=== PATIENT | female | born 1950 | race Caucasian/White ===

== ENCOUNTER 2018-12-30 18:18 | Inpatient (IN) | payer MEDICARE ==
[~2018-12-30] VITALS: Ht 167.6 cm; Wt 105.7 kg
[2018-12-30] MEDS ORDERED: MORPHINE SULFATE 2 MG/ML VIAL. IV/SQ PRN (18:30)
[2018-12-30] MEDS ORDERED: IV NORMAL SALINE 1000ML BAG 1,000 ML IV SCH (18:45)
[2018-12-30] MEDS ORDERED: ONDANSETRON PF 4 MG/2 ML VIAL. IV ONE (18:45)
[2018-12-30 18:51] LABS: BASO # 0.1 x10^3/uL (0.0-0.2); BASO % 1 % (0-3); EOS # 0.2 x10^3/uL (0.0-0.7); EOS % 2 % (0-3); HEMATOCRIT 40.9 % (36.0-47.0); HEMOGLOBIN 13.6 g/dL (12.0-15.5); LYMPH # 4.3 x10^3/uL (1.0-4.8); LYMPH % 38 % (24-48); MEAN CORPUSCULAR HEMOGLOBIN 31 pg (25-35); MEAN CORPUSCULAR HGB CONC 33 g/dL (31-37); MEAN CORPUSCULAR VOLUME 94 fL (79-100); MONO # 0.8 x10^3/uL (0.0-1.1); MONO % 7 % (0-9); NEUT % 53 % (31-73); PLATELET COUNT 244 x10^3/uL (140-400); RED BLOOD COUNT 4.37 x10^6/uL (3.50-5.40); RED CELL DISTRIBUTION WIDTH 13.2 % (11.5-14.5); WHITE BLOOD COUNT 11.4 x10^3/uL (4.0-11.0)
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
[2018-12-30 19:03] LABS: PROTHROMBIN TIME PATIENT 12.5 SEC (11.7-14.0)
[2018-12-30 19:07] LABS: CALCIUM 9.4 mg/dL (8.5-10.1); CREATININE 0.8 mg/dL (0.6-1.0); GFR 70.9; POTASSIUM 4.2 mmol/L (3.5-5.1)
[2018-12-30 19:14] LABS: ALBUMIN 3.7 g/dL (3.4-5.0); ALBUMIN/GLOBULIN RATIO 0.9 (1.0-1.7); TOTAL BILIRUBIN 0.4 mg/dL (0.2-1.0); TOTAL PROTEIN 7.6 g/dL (6.4-8.2)
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
[2018-12-30] MEDS ORDERED: KETOROLAC 30 MG/ML VIAL. IV ONE (19:45)
[2018-12-30] MEDS ORDERED: ONDANSETRON PF 4 MG/2 ML VIAL. IV PRN (20:15)
[2018-12-30] MEDS ORDERED: ACETAMINOPHEN 325 MG TABLET. PO PRN (20:15)
[2018-12-30] MEDS ORDERED: DEXTROSE 50% 25 GM / 50ML DISP.SYRIN. IV PRN (21:15)
[2018-12-30] MEDS: MORPHINE SULFATE 2 MG/ML VIAL. IV PRN (21:58)
[2018-12-30 22:28] LABS: BILIRUBIN,URINE NEGATIVE (NEG); CLARITY,URINE CLOUDY; COLOR,URINE YELLOW; NITRITE,URINE NEGATIVE (NEG); PROTEIN,URINE NEGATIVE (NEG-TRACE); UROBILINOGEN,URINE 0.2 mg/dL (0.2 mg/dL)
[2018-12-30 22:38] LABS: BACTERIA,URINE MOD /HPF (0-FEW); SQUAMOUS EPITHELIAL CELL,UR MOD /LPF; WBC,URINE >40 /HPF (0-4)
[2018-12-30] MEDS: LIDOCAINE (700MG/PATCH) PATCH. TD SCH (22:55)
[2018-12-30 23:50] VITALS: BP 120/63
[2018-12-31] MEDS: IPRATRPIUM/ALBUTEROL 0.5/2.5MG 3 ML NEBU. NEB SCH ×5 (00:57→19:48)
[2018-12-31 03:03] VITALS: BP 99/43
[2018-12-31] MEDS: MORPHINE SULFATE 2 MG/ML VIAL. IV PRN ×3 (03:56→17:25)
[2018-12-31] MEDS ORDERED: FLUT1DIS3 IH (05:10)
[2018-12-31] MEDS ORDERED: METF500T16 PO (05:16)
[2018-12-31] MEDS ORDERED: FAMO-63 PO (05:16)
[2018-12-31] MEDS ORDERED: LEVO112T4 PO (05:16)
[2018-12-31 07:00] VITALS: BP 121/59
[2018-12-31] MEDS: INSULIN LISPRO 300 UNITS/3 ML VIAL. SQ SCH ×4 (07:30→20:33)
[2018-12-31 08:33] LABS: BASO % 0 % (0-3); EOS # 0.1 x10^3/uL (0.0-0.7); EOS % 1 % (0-3); HEMATOCRIT 36.2 % (36.0-47.0); HEMOGLOBIN 12.1 g/dL (12.0-15.5); LYMPH # 1.6 x10^3/uL (1.0-4.8); LYMPH % 24 % (24-48); MEAN CORPUSCULAR HEMOGLOBIN 32 pg (25-35); MEAN CORPUSCULAR HGB CONC 33 g/dL (31-37); MEAN CORPUSCULAR VOLUME 95 fL (79-100); MONO # 0.9 x10^3/uL (0.0-1.1); MONO % 12 % (0-9); NEUT # 4.4 x10^3/uL (1.8-7.7); NEUT % 63 % (31-73); PLATELET COUNT 188 x10^3/uL (140-400); RED BLOOD COUNT 3.81 x10^6/uL (3.50-5.40); RED CELL DISTRIBUTION WIDTH 13.4 % (11.5-14.5); WHITE BLOOD COUNT 6.9 x10^3/uL (4.0-11.0)
[2018-12-31] MEDS ORDERED: ACETAMINOPHEN 325 MG TABLET. PO PRN (09:00)
[2018-12-31] MEDS ORDERED: NON FORMULARY ITEM (Fluticasone/Salmeterol (Advair 250-50 Diskus) 1 PUFF) IH SCH (09:00)
[2018-12-31] MEDS ORDERED: ACETAMINOPHEN 325 MG TABLET. PO SCH (09:00)
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
[2018-12-31 09:18] LABS: ALBUMIN 2.9 g/dL (3.4-5.0); ALBUMIN/GLOBULIN RATIO 0.9 (1.0-1.7); CALCIUM 8.6 mg/dL (8.5-10.1); CREATININE 0.7 mg/dL (0.6-1.0); GFR 82.7; POTASSIUM 4.5 mmol/L (3.5-5.1); TOTAL BILIRUBIN 0.4 mg/dL (0.2-1.0); TOTAL PROTEIN 6.2 g/dL (6.4-8.2)
[2018-12-31] MEDS: LIDOCAINE (700MG/PATCH) PATCH. TD SCH (10:33)
[2018-12-31] MEDS: HYDROcodone/APAP 5/325MG 1 TAB TABLET PO PRN ×3 (10:33→20:30)
[2018-12-31] MEDS: KETOROLAC 15 MG/ML VIAL. IVP PRN ×2 (10:33→17:22)
[2018-12-31] MEDS: LEVOTHYROXINE 112 MCG TABLET PO SCH (10:33)
[2018-12-31 11:00] VITALS: BP 103/61
[2018-12-31] MEDS: BUDESONIDE 0.5 MG/2 ML NEBU. NEB SCH ×2 (11:29→19:47)
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
[2018-12-31] MEDS: FAMOTIDINE 20 MG TABLET. PO SCH ×2 (14:23→20:26)
[2018-12-31] MEDS: IBUPROFEN 400 MG TABLET. PO SCH ×2 (14:23→17:21)
[2018-12-31 15:00] VITALS: BP 115/59
[2018-12-31 19:38] VITALS: BP 107/50
[2018-12-31] MEDS: ALBUTEROL SULFATE 2.5 MG/3 ML NEBU. NEB SCH (19:47)
[2018-12-31] MEDS: PATCH REMOVAL. MC SCH ×2 (20:27)
[2018-12-31] MEDS ORDERED: FAMOTIDINE 20 MG TABLET. PO SCH (21:00)
[2018-12-31] MEDS: tiZANidine 4 MG TABLET. PO PRN (22:42)
[2018-12-31 23:36] VITALS: BP 108/42
[2019-01-01 03:42] VITALS: BP 107/61
[2019-01-01] MEDS: HYDROcodone/APAP 5/325MG 1 TAB TABLET PO PRN ×4 (06:06→21:21)
[2019-01-01] MEDS: LEVOTHYROXINE 112 MCG TABLET PO SCH (06:06)
[2019-01-01] MEDS: KETOROLAC 15 MG/ML VIAL. IVP PRN (06:11)
[2019-01-01 07:00] VITALS: BP 123/71
[2019-01-01] MEDS: INSULIN LISPRO 300 UNITS/3 ML VIAL. SQ SCH (07:30)
[2019-01-01] MEDS: IPRATRPIUM/ALBUTEROL 0.5/2.5MG 3 ML NEBU. NEB SCH ×4 (08:12→20:20)
[2019-01-01] MEDS: BUDESONIDE 0.5 MG/2 ML NEBU. NEB SCH ×2 (08:12→20:20)
[2019-01-01] MEDS: ALBUTEROL SULFATE 2.5 MG/3 ML NEBU. NEB SCH ×3 (08:14→20:00)
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
[2019-01-01] MEDS: FAMOTIDINE 20 MG TABLET. PO SCH ×2 (10:20→21:18)
[2019-01-01] MEDS: IBUPROFEN 400 MG TABLET. PO SCH ×3 (10:20→19:32)
[2019-01-01] MEDS: LIDOCAINE (700MG/PATCH) PATCH. TD SCH (10:21)
[2019-01-01 11:00] VITALS: BP 152/78
[2019-01-01] MEDS: tiZANidine 4 MG TABLET. PO PRN (14:18)
[2019-01-01 15:00] VITALS: BP 119/68
[2019-01-01 20:34] VITALS: BP 127/60
[2019-01-01] MEDS: PATCH REMOVAL. MC SCH (21:00)
[2019-01-01 22:49] VITALS: BP 151/77
[2019-01-02 03:00] VITALS: BP 125/74
[2019-01-02] MEDS: tiZANidine 4 MG TABLET. PO PRN (03:57)
[2019-01-02] MEDS: HYDROcodone/APAP 5/325MG 1 TAB TABLET PO PRN ×4 (03:57→17:23)
[2019-01-02] MEDS: LEVOTHYROXINE 112 MCG TABLET PO SCH (06:00)
--- NOTE | 2019-01-02 06:12 | EKG ---
[facility] [address] [place] [address] Test Date: 2018-12-30 Test Time: 18:31:12 Pat Name: BERHANE HERNANDEZ Department: Room: Gender: F [employer]: : [id number] Requested By: EARNESTINE MCCLELLAN Order Number: [id number] Reading MD: Measurements Intervals [place] Rate: 93 P: 163 NH: 164 QRS: 32 QRSD: 84 T: -2 QT: 370 QTc: 462 Interpretive Statements SINUS RHYTHM NORMAL ECG No previous ECG available for comparison
[2019-01-02 07:00] VITALS: BP 107/61
[2019-01-02] MEDS: ALBUTEROL SULFATE 2.5 MG/3 ML NEBU. NEB SCH ×3 (07:45→16:04)
[2019-01-02] MEDS: BUDESONIDE 0.5 MG/2 ML NEBU. NEB SCH (07:45)
[2019-01-02] MEDS ORDERED: HYDR-2761 PO (08:04)
[2019-01-02] MEDS ORDERED: NAPR-514 PO (08:04)
[2019-01-02] MEDS ORDERED: TIZA4TAB2 PO (08:04)
[2019-01-02] MEDS ORDERED: ALBU2.5V8 IH (08:05)
[2019-01-02] MEDS ORDERED: LIDO700A21 TP (08:06)
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
[2019-01-02] MEDS: FAMOTIDINE 20 MG TABLET. PO SCH (08:17)
[2019-01-02] MEDS: IBUPROFEN 400 MG TABLET. PO SCH ×2 (08:17→13:10)
[2019-01-02] MEDS: LIDOCAINE (700MG/PATCH) PATCH. TD SCH ×2 (08:18→09:00)
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
[2019-01-02 11:00] VITALS: BP 148/70
--- NOTE | 2019-01-02 12:32 | NUR ---
SW following for discharge planning. Chart reviewed, discussed with RN. Pt is from home with . Discharge plan for home health. SW met with pt, pt agreeable to [facility]. SW contacted [facility] (ph: [phone], fax: [phone]). Referral faxed, awaiting acceptance decision. Pt reported her granddaughter will be coming to collect her later today. RN notified. SW will continue to follow. Addendum: 01/02/19 at 1540 by DESHAWN SERRANO Pt has been accepted by [facility]. RN and pt notified. No further SW needs.
[2019-01-02 15:00] VITALS: BP 138/54
--- NOTE | 2019-01-02 16:46 | NUR ---
Pt. discharged to home with Rx, verbalized understanding of discharge instructions. Addendum: 01/02/19 at 1720 by FRANSISCO DELATORRE RN Pt awaiting daughter's arrival for ride home
--- NOTE | 2019-01-02 17:42 | NUR ---
Pt's daughter here to get pt.pt taken to door via WC per [facility].
[2019-01-02] MEDS ORDERED: PATCH REMOVAL. MC SCH (21:00)
== END 2019-01-02 18:07 | disposition home health service (06) | DRG 184 ==
LOC: ER 18:18 → 6 SOUTH 19:57 → 4 NORTH 01-01 20:33
PROVIDERS: ADMIT Internal Medicine; ATTEND Internal Medicine
PROC: 5A09357 Assistance with Respiratory Ventilation, Less than 24 Consecutive Hours, Continuous Positive Airway Pressure (ICD-10-PCS; principal; 2018-12-31)
DX: S22.42XA Multiple fractures of ribs, left side, initial encounter for closed fracture (principal); J98.11 Atelectasis; Z68.37 Body mass index [BMI] 37.0-37.9, adult; E66.9 Obesity, unspecified; E03.9 Hypothyroidism, unspecified; E11.9 Type 2 diabetes mellitus without complications; I10 Essential (primary) hypertension; J44.9 Chronic obstructive pulmonary disease, unspecified; K21.9 Gastro-esophageal reflux disease without esophagitis; M17.0 Bilateral primary osteoarthritis of knee; S30.1XXA Contusion of abdominal wall, initial encounter; Z88.2 Allergy status to sulfonamides; Z88.8 Allergy status to other drugs, medicaments and biological substances; Z90.49 Acquired absence of other specified parts of digestive tract; V49.88XA Car occupant (driver) (passenger) injured in other specified transport accidents, initial encounter; Y93.89 Activity, other specified; Y92.89 Other specified places as the place of occurrence of the external cause; Y99.8 Other external cause status
CPT/HCPCS: 36415; 70450; 71250; 72125; 74176; 80053; 81001; 82962; 85025; 85610; 85730; 86850; 86900; 86901; 93005; 94640; 94760; 96374; J1815; J1885; J2270; J2405; J7030; J7613; J7620; J7626; 97116; 97530; 99291-25; G0378